=== PATIENT | female | born 1950 | race Caucasian/White ===

== ENCOUNTER 2022-07-28 08:31 | Observation (INO) ==
[~2022-07-28 08:31] MED LIST: Buffered Lidocaine 1% SYRIN 1 ml INTRADERM ONE; HYDROmorphone 1 MG/1 ML SYRINGE IV PRN; Lactated Ringers 1000 ml BAG 1,000 ML IV SCH; Naloxone 0.4 mg VIAL 0.4 mg/ml 1 ml VIAL IV PRN; Prochlorperazine 5 mg/ml 2 ml VIAL (10 mg) IV PRN
[2022-07-28] MEDS ORDERED: ceFAZolin 2 GM PREMIX 2 GM/50 ML BAG ONE (08:42)
[2022-07-28] MEDS ORDERED: Lidocaine 2% PF 5 ML VIAL ONE (10:23)
[2022-07-28] MEDS ORDERED: Midazolam 2 mg/2 ml VIAL 1 mg/ml 2 ml VIAL (2 mg) ONE (10:31)
[2022-07-28] MEDS ORDERED: ROPIVACAINE 5 MG/ML 30 ML BTL (0.5%) ONE ×2 (10:31→11:35)
[2022-07-28] MEDS ORDERED: fentaNYL 100 mcg/2 ml 50 MCG/ML VIAL ONE (10:31)
[2022-07-28] MEDS ORDERED: Propofol 10 MG/ML 20 ML BTL ONE ×2 (12:08→13:53)
[2022-07-28] MEDS ORDERED: Phenylephrine IV 10 MG/ML 1 ml VIAL ONE (12:12)
[2022-07-28] MEDS ORDERED: Glycopyrrolate IV 0.2 MG/ML 1 ML VIAL ONE (12:38)
[2022-07-28] MEDS ORDERED: Ondansetron 4 mg VIAL 2 MG/ML 2 ml VIAL IV PRN (12:44)
[2022-07-28] MEDS ORDERED: Magnesium Hydroxide LIQ 30 ML UDC PO PRN (12:44)
[2022-07-28] MEDS ORDERED: Lactulose 30 ml UDC PO PRN (12:44)
[2022-07-28] MEDS ORDERED: Ondansetron ODT 4 mg TAB 4 MG TAB PO PRN (12:44)
[2022-07-28] MEDS ORDERED: Morphine 2 MG/ML SYRINGE IV PRN (12:44)
[2022-07-28] MEDS ORDERED: Ondansetron 4 mg VIAL 2 MG/ML 2 ml VIAL ONE (13:47)
[2022-07-28] MEDS ORDERED: Dexamethasone IV 4 MG/ML VIAL 1 ml VIAL ONE (13:47)
[2022-07-28] MEDS ORDERED: HYDROmorphone 1 MG/1 ML SYRINGE ONE (15:04)
[2022-07-28] MEDS: Lactated Ringers 1000 ml BAG 1,000 ML IV SCH (18:11)
[2022-07-28] MEDS: Magnesium Hydroxide LIQ 30 ML UDC PO SCH (21:04)
[2022-07-28] MEDS: ceFAZolin 1 GM in Dextrose 1 GM/50 ML BAG IVPB SCH (21:05)
[2022-07-29] MEDS: ceFAZolin 1 GM in Dextrose 1 GM/50 ML BAG IVPB SCH ×2 (04:25→13:43)
[2022-07-29] MEDS: Lactated Ringers 1000 ml BAG 1,000 ML IV SCH (04:55)
[2022-07-29 05:54] LABS: Hematocrit 31 % (35-47); Hemoglobin 10.3 g/dL (12.0-16.0); Platelet Count 191 10^3/uL (150-450)
[2022-07-29 06:17] LABS: Calcium 8.5 mg/dL (8.6-10.3); Potassium 4.4 mmol/L (3.5-5.0); eGFR CKD-EPI 74.7 (>60)
[2022-07-29] MEDS ORDERED: Vitamin THERAPEUTIC TAB PO SCH (09:00)
[2022-07-29] MEDS: Magnesium Hydroxide LIQ 30 ML UDC PO SCH (09:41)
[2022-07-29 12:01] VITALS: BP 121/75
== END 2022-07-29 14:20 | disposition home or self-care (01) ==
LOC: SSU 08:31 → OR 08:31 → EDSTATUS 12:15
PROVIDERS: ADMIT Orthopaedic Surgery Adult Reconstructive Orthopaedic Surgery; ATTEND Orthopaedic Surgery Adult Reconstructive Orthopaedic Surgery